=== PATIENT | male | born 1960 | race Caucasian/White ===

== ENCOUNTER 2019-09-27 11:36 | Emergency (ER) | payer MEDICARE, MEDICAID ==
[~2019-09-27] VITALS: Ht 175.3 cm; Wt 41.5 kg
[2019-09-27 11:38] VITALS: BP 177/105
== END 2019-09-27 12:55 | disposition home or self-care (01) ==
LOC: ER 11:37
DX: Z02.79 Encounter for issue of other medical certificate (principal)
CPT/HCPCS: 99281